=== PATIENT | female | born 1990 | race Caucasian/White ===

== ENCOUNTER 2023-08-06 22:10 | Emergency (ER) | payer BC ==
[~2023-08-06] VITALS: Ht 165.1 cm; Wt 98.9 kg
[2023-08-06] MEDS ORDERED: MORPHINE SULFATE INJ 4 MG/ML DISP.SYRIN ONE (23:18)
[2023-08-06] MEDS ORDERED: ONDANSETRON HCL/PF 4 MG/2 ML VIAL ONE (23:18)
[2023-08-06] MEDS: MORPHINE SULFATE INJ 2 MG/ML DISP.SYRIN IV ONE (23:30)
[2023-08-06] MEDS: ONDANSETRON HCL/PF 4 MG/2 ML VIAL IVP ONE (23:30)
[2023-08-06] MEDS: IV NS 0.9% 1,000 ML BAG IV ONE (23:30)
[2023-08-06 23:51] LABS: BASOPHILS # (AUTO) 0.1 K/uL (0.0-0.2); BASOPHILS % (AUTO) 0.6 % (0.0-2.0); EOSINOPHILS % (AUTO) 0.5 % (0.0-6.0); HEMATOCRIT 37 % (33-45); HEMOGLOBIN 12.4 g/dL (11.5-14.8); LYMPHOCYTES # (AUTO) 3.7 K/uL (0.8-4.8); LYMPHOCYTES % (AUTO) 39.5 % (20.0-44.0); MEAN CORPUSCULAR HEMOGLOBIN 31 PG (26.0-33.0); MEAN CORPUSCULAR HGB CONC 34 g/dl (31.0-36.0); MEAN CORPUSCULAR VOLUME 91 fL (82-100); MONOCYTES # (AUTO) 0.5 K/uL (0.1-1.30); MONOCYTES % (AUTO) 5.7 % (2.0-12.0); NEUTROPHILS % (AUTO) 53.7 % (43.0-81.0); PLATELET COUNT (AUTO) 234 K/uL (150-450); RED BLOOD CELL COUNT(AUTO) 4.05 MIL/uL (4.0-5.2); RED CELL DISTRIBUTION WIDTH 12.7 % (11.5-15.0); WHITE BLOOD COUNT (AUTO) 9.4 K/uL (4.3-11.0)
[2023-08-06 23:57] LABS: APPEARANCE,URINE SLIGHTLY CLOUDY (CLEAR); BILIRUBIN,URINE 1+ (NEGATIVE); BLOOD, URINE 3+ Ery/uL (NEGATIVE); COLOR,URINE DARK YELLOW (YELLOW); KETONES,URINE 2+ mg/dL (NEGATIVE); LEUKOCYTE ESTERASE ,URINE NEGATIVE (NEGATIVE); NITRITE, URINE NEGATIVE (NEGATIVE); PH,URINE 5.5 (5.0-8.0); PROTEIN,URINE TRACE mg/dl (NEGATIVE); UGLUCOSE NEGATIVE (NEGATIVE)
[2023-08-06 23:59] LABS: ADD URINE CULTURE NO; BACTERIA,URINE Rare /HPF (None Seen); PREGNANCY TEST URINE QUAL NEGATIVE (NEGATIVE); RBC,URINE 21-50 /HPF (0-2); SQUAMOUS EPITHELIAL CELL,UR Rare /HPF (None Seen); WBC,URINE 0-2 /HPF (0-3)
[2023-08-07 00:03] LABS: CALCIUM, SERUM 9.2 mg/dL (8.5-10.1); CREATININE 0.7 mg/dL (0.6-1.3); POTASSIUM 3.7 mmol/L (3.5-5.1)
[2023-08-07 00:09] LABS: ALBUMIN 3.6 g/dL (3.4-5.0); BILIRUBIN,DIRECT 0.1 mg/dL (0.0-0.2); BILIRUBIN,TOTAL 0.4 mg/dL (0.2-1.0); TOTAL PROTEIN, SERUM 7.2 g/dL (6.4-8.2)
[2023-08-07] MEDS ORDERED: KETOROLAC TROMETHAMINE 15 MG/ML VIAL ONE (02:09)
[2023-08-07] MEDS ORDERED: ONDANSETRON HCL/PF 4 MG/2 ML VIAL ONE (02:09)
[2023-08-07] MEDS ORDERED: TAMSULOSIN 0.4 MG CAP.SR.24H ONE (02:10)
[2023-08-07] MEDS ORDERED: KETO10TA2 PO (02:16)
[2023-08-07] MEDS: KETOROLAC TROMETHAMINE 15 MG/ML VIAL IV ONE (02:16)
[2023-08-07] MEDS ORDERED: TAMS-12 PO (02:16)
[2023-08-07] MEDS ORDERED: ONDA4TAB11 PO (02:16)
[2023-08-07] MEDS: ONDANSETRON HCL/PF - ER 4 MG/2 ML VIAL IV ONE (02:17)
[2023-08-07] MEDS: TAMSULOSIN 0.4 MG CAP.SR.24H PO ONE (02:17)
[2023-08-07 02:29] VITALS: BP 121/80; TEMP 98.6; O2SAT 100
[2023-08-08] MEDS ORDERED: HYDR-4303 PO (17:46)
[2023-08-08] MEDS ORDERED: NITR100C6 PO (17:46)
== END 2023-08-07 02:29 | disposition home or self-care (01) ==
LOC: ER 22:13
DX: N20.1 Calculus of ureter (principal); R10.31 Right lower quadrant pain
CPT/HCPCS: 99285; 96374; 96361; 96375 ×2; 85025; 80048; 83690; 80076; 84703; 81001; 36415; 74176; 96376; J2270; J2405 ×2; J7030; J1885

== ENCOUNTER → 2023-08-08 | Emergency (ER) | payer BC ==
[~2023-08-08] VITALS: Ht 165.1 cm; Wt 98.9 kg
[~2023-08-08] MED LIST: CEFTRIAXONE 1GM BAG (ER ONLY) 50 ML IV ONE; HYDR-4303 PO; HYDROMORPHONE 1 MG/1 ML DISP.SYRIN ONE; KETO10TA2 PO; KETOROLAC TROMETHAMINE 15 MG/ML VIAL ONE; NITR100C6 PO; ONDA4TAB11 PO; ONDANSETRON HCL/PF 4 MG/2 ML VIAL ONE; TAMS-12 PO
[2023-08-08 14:43] VITALS: BP 108/67; TEMP 98; O2SAT 100
[2023-08-08 15:18] LABS: BASOPHILS # (AUTO) 0.2 K/uL (0.0-0.2); BASOPHILS % (AUTO) 3.5 % (0.0-2.0); EOSINOPHILS # (AUTO) 0.1 K/uL (0.0-0.7); EOSINOPHILS % (AUTO) 0.9 % (0.0-6.0); HEMATOCRIT 36 % (33-45); HEMOGLOBIN 12.2 g/dL (11.5-14.8); LYMPHOCYTES # (AUTO) 1.9 K/uL (0.8-4.8); LYMPHOCYTES % (AUTO) 26.7 % (20.0-44.0); MEAN CORPUSCULAR HEMOGLOBIN 31 PG (26.0-33.0); MEAN CORPUSCULAR HGB CONC 34 g/dl (31.0-36.0); MEAN CORPUSCULAR VOLUME 91 fL (82-100); MONOCYTES # (AUTO) 0.3 K/uL (0.1-1.30); NEUTROPHILS # (AUTO) 4.5 K/uL (1.8-8.9); NEUTROPHILS % (AUTO) 64.9 % (43.0-81.0); PLATELET COUNT (AUTO) 231 K/uL (150-450); RED CELL DISTRIBUTION WIDTH 12.1 % (11.5-15.0); WHITE BLOOD COUNT (AUTO) 6.9 K/uL (4.3-11.0)
[2023-08-08 15:24] LABS: ALBUMIN 3.7 g/dL (3.4-5.0); BILIRUBIN,DIRECT 0.2 mg/dL (0.0-0.2); BILIRUBIN,TOTAL 0.6 mg/dL (0.2-1.0); CALCIUM, SERUM 8.5 mg/dL (8.5-10.1); CREATININE 0.7 mg/dL (0.6-1.3); POTASSIUM 3.8 mmol/L (3.5-5.1); TOTAL PROTEIN, SERUM 7.1 g/dL (6.4-8.2)
[2023-08-08 15:31] LABS: APPEARANCE,URINE Cloudy (CLEAR); BILIRUBIN,URINE MODERATE (NEGATIVE); BLOOD, URINE Trace-intact Ery/uL (NEGATIVE); COLOR,URINE DARK YELLOW (YELLOW); KETONES,URINE >=160 mg/dL (NEGATIVE); LEUKOCYTE ESTERASE ,URINE Negative (NEGATIVE); NITRITE, URINE Negative (NEGATIVE); PH,URINE 5.5 (5.0-8.0); PROTEIN,URINE 30 mg/dl (NEGATIVE); UGLUCOSE Negative (NEGATIVE)
[2023-08-08 15:36] LABS: PREGNANCY TEST URINE QUAL NEGATIVE (NEGATIVE)
[2023-08-08] MEDS: KETOROLAC TROMETHAMINE 15 MG/ML VIAL IV ONE (15:47)
[2023-08-08] MEDS: IV NS 0.9% 1,000 ML BAG IV ONE (15:47)
[2023-08-08] MEDS: ONDANSETRON HCL/PF 4 MG/2 ML VIAL IVP ONE (15:47)
[2023-08-08] MEDS: HYDROMORPHONE INJ 2 MG/ML DISP.SYRIN IV ONE (15:47)
[2023-08-08 15:58] LABS: ADD URINE CULTURE YES; BACTERIA,URINE Moderate /HPF (None Seen); SQUAMOUS EPITHELIAL CELL,UR Moderate /HPF (None Seen)
[2023-08-08] MEDS: CEFTRIAXONE 1GM BAG (ER ONLY) 50 ML IV ONE (17:45)
== END | disposition home or self-care (01) ==
LOC: ER 14:36
DX: N20.0 Calculus of kidney (principal); N39.0 Urinary tract infection, site not specified; R10.31 Right lower quadrant pain
CPT/HCPCS: 99285; 96365; 96375; 76770; 85025; 80048; 87086; 83690; 80076; 84703; 81001; 36415; J2405; J7030; A4223; J0696; J1170; J1885

== ENCOUNTER 2023-10-13 08:01 | Emergency (ER) | payer SELFPAY ==
[~2023-10-13] VITALS: Ht 165.1 cm; Wt 94.8 kg
[~2023-10-13 08:01] MED LIST changes: -CEFTRIAXONE 1GM BAG (ER ONLY) 50 ML IV ONE; -HYDROMORPHONE 1 MG/1 ML DISP.SYRIN ONE; -KETOROLAC TROMETHAMINE 15 MG/ML VIAL ONE; -ONDANSETRON HCL/PF 4 MG/2 ML VIAL ONE
[2023-10-13 08:57] LABS: BASOPHILS % (AUTO) 0.5 % (0.0-2.0); EOSINOPHILS # (AUTO) 0.1 K/uL (0.0-0.7); HEMATOCRIT 36 % (33-45); HEMOGLOBIN 12.2 g/dL (11.5-14.8); LYMPHOCYTES # (AUTO) 2.4 K/uL (0.8-4.8); LYMPHOCYTES % (AUTO) 41.2 % (20.0-44.0); MEAN CORPUSCULAR HEMOGLOBIN 31 PG (26.0-33.0); MEAN CORPUSCULAR HGB CONC 34 g/dl (31.0-36.0); MEAN CORPUSCULAR VOLUME 90 fL (82-100); MONOCYTES # (AUTO) 0.3 K/uL (0.1-1.30); MONOCYTES % (AUTO) 5.1 % (2.0-12.0); NEUTROPHILS % (AUTO) 52.2 % (43.0-81.0); PLATELET COUNT (AUTO) 239 K/uL (150-450); RED BLOOD CELL COUNT(AUTO) 3.92 MIL/uL (4.0-5.2); RED CELL DISTRIBUTION WIDTH 12.3 % (11.5-15.0); WHITE BLOOD COUNT (AUTO) 5.8 K/uL (4.3-11.0)
[2023-10-13 08:58] LABS: APPEARANCE,URINE CLEAR (CLEAR); BILIRUBIN,URINE NEGATIVE (NEGATIVE); BLOOD, URINE NEGATIVE Ery/uL (NEGATIVE); COLOR,URINE YELLOW (YELLOW); KETONES,URINE NEGATIVE (NEGATIVE); LEUKOCYTE ESTERASE ,URINE NEGATIVE (NEGATIVE); NITRITE, URINE NEGATIVE (NEGATIVE); PH,URINE 6.5 (5.0-8.0); PROTEIN,URINE NEGATIVE (NEGATIVE); UGLUCOSE NEGATIVE (NEGATIVE); UROBILINOGEN,URINE 0.2 EU/dL (0.2)
[2023-10-13 09:03] LABS: PREGNANCY TEST URINE QUAL NEGATIVE (NEGATIVE)
[2023-10-13 09:04] LABS: CALCIUM, SERUM 9.3 mg/dL (8.5-10.1); CREATININE 0.7 mg/dL (0.6-1.3); POTASSIUM 4.1 mmol/L (3.5-5.1)
[2023-10-13 09:10] LABS: ALBUMIN 3.4 g/dL (3.4-5.0); BILIRUBIN,DIRECT 0.1 mg/dL (0.0-0.2); BILIRUBIN,TOTAL 0.3 mg/dL (0.2-1.0); TOTAL PROTEIN, SERUM 6.9 g/dL (6.4-8.2)
[2023-10-13] MEDS ORDERED: IBUP-1955 PO (10:09)
[2023-10-13] MEDS ORDERED: TAMS-12 PO (10:09)
[2023-10-13] MEDS ORDERED: HYDR-4303 PO (10:09)
[2023-10-13] MEDS ORDERED: KETOROLAC TROMETHAMINE 15 MG/ML VIAL ONE (10:45)
[2023-10-13] MEDS: KETOROLAC TROMETHAMINE 15 MG/ML VIAL IM ONE (10:49)
[2023-10-13 11:05] VITALS: BP 123/84; TEMP 98.2; O2SAT 100
== END 2023-10-13 11:06 | disposition home or self-care (01) ==
LOC: ER 08:19
DX: N13.2 Hydronephrosis with renal and ureteral calculous obstruction (principal); R10.31 Right lower quadrant pain; R30.0 Dysuria; R39.15 Urgency of urination
CPT/HCPCS: 99285; 76705; 96372; 85025; 80048; 83690; 80076; 84703; 81003; 36415; J1885

== ENCOUNTER 2024-08-06 06:40 | Emergency (ER) | payer MEDICAID ==
[~2024-08-06] VITALS: Ht 165.1 cm; Wt 99.8 kg
[~2024-08-06 06:40] MED LIST changes: +IBUP-1955 PO
[2024-08-06 07:35] LABS: BASOPHILS % (AUTO) 0.5 % (0.0-2.0); EOSINOPHILS # (AUTO) 0.1 K/uL (0.0-0.7); EOSINOPHILS % (AUTO) 0.9 % (0.0-6.0); HEMATOCRIT 37 % (33-45); HEMOGLOBIN 12.3 g/dL (11.5-14.8); LYMPHOCYTES # (AUTO) 1.6 K/uL (0.8-4.8); LYMPHOCYTES % (AUTO) 22.3 % (20.0-44.0); MEAN CORPUSCULAR HEMOGLOBIN 28 PG (26.0-33.0); MEAN CORPUSCULAR HGB CONC 33 g/dl (31.0-36.0); MEAN CORPUSCULAR VOLUME 85 fL (82-100); MONOCYTES # (AUTO) 0.6 K/uL (0.1-1.30); MONOCYTES % (AUTO) 8.4 % (2.0-12.0); NEUTROPHILS # (AUTO) 4.9 K/uL (1.8-8.9); NEUTROPHILS % (AUTO) 67.9 % (43.0-81.0); PLATELET COUNT (AUTO) 235 K/uL (150-450); RED BLOOD CELL COUNT(AUTO) 4.33 MIL/uL (4.0-5.2); WHITE BLOOD COUNT (AUTO) 7.2 K/uL (4.3-11.0)
[2024-08-06 07:42] LABS: CALCIUM, SERUM 8.8 mg/dL (8.5-10.1); CARBON DIOXIDE 26 mmol/L (21-32); CHLORIDE 103 mmol/L (98-107); CREATININE 0.6 mg/dL (0.6-1.3); GLUCOSE 85 mg/dL (74-106); POTASSIUM 4.1 mmol/L (3.5-5.1); SODIUM SERUM 140 mmol/L (136-145); UREA NITROGEN, BLOOD 8 mg/dL (7-18)
[2024-08-06] MEDS ORDERED: KETOROLAC TROMETHAMINE 15 MG/ML VIAL ONE (07:42)
[2024-08-06] MEDS: KETOROLAC TROMETHAMINE 15 MG/ML VIAL IV ONE (07:45)
[2024-08-06] MEDS ORDERED: AMOX500T2 PO (08:05)
[2024-08-06] MEDS ORDERED: ALBU18HF2 INH (08:05)
[2024-08-06] MEDS ORDERED: DOXY100C2 PO (08:05)
[2024-08-06 08:19] VITALS: BP 129/83; TEMP 98.5; O2SAT 99
== END 2024-08-06 08:22 | disposition home or self-care (01) ==
LOC: ER 06:40
DX: J20.9 Acute bronchitis, unspecified (principal); R07.89 Other chest pain; R10.2 Pelvic and perineal pain; Z87.442 Personal history of urinary calculi; Z79.899 Other long term (current) drug therapy
CPT/HCPCS: 99285; 96374; 71045; 93005; 85025; 80048; 36415; 84484; 84702; J1885

== ENCOUNTER 2024-12-26 14:29 | Emergency (ER) | payer BC ==
[~2024-12-26] VITALS: Ht 165.1 cm; Wt 99.8 kg
[~2024-12-26 14:29] MED LIST changes: +ALBU18HF2 INH; +AMOX500T2 PO; +DOXY100C2 PO
[2024-12-26 14:51] VITALS: TEMP 98.2
[2024-12-26 15:22] LABS: APPEARANCE,URINE CLEAR (CLEAR); BLOOD, URINE NEGATIVE Ery/uL (NEGATIVE); LEUKOCYTE ESTERASE ,URINE NEGATIVE (NEGATIVE); NITRITE, URINE NEGATIVE (NEGATIVE); UGLUCOSE NEGATIVE (NEGATIVE)
[2024-12-26] MEDS ORDERED: ACETAMINOPHEN ES 500 MG TABLET ONE (15:29)
[2024-12-26] MEDS ORDERED: IBUPROFEN 600 MG TABLET ONE (15:29)
[2024-12-26 15:33] LABS: PLATELET COUNT (AUTO) 241 K/uL (150-450); RED BLOOD CELL COUNT(AUTO) 4.08 MIL/uL (4.0-5.2); RED CELL DISTRIBUTION WIDTH 13.5 % (11.5-15.0); WHITE BLOOD COUNT (AUTO) 10.1 K/uL (4.3-11.0)
[2024-12-26 15:47] LABS: ADD URINE CULTURE NO
[2024-12-26 15:50] LABS: INR 0.9 (0.91-1.10)
[2024-12-26] MEDS: ACETAMINOPHEN ES 500 MG TABLET PO ONE (15:50)
[2024-12-26] MEDS: IBUPROFEN 600 MG TABLET PO ONE (15:50)
[2024-12-26 16:00] LABS: CALCIUM, SERUM 8.6 mg/dL (8.5-10.1); CREATININE 0.8 mg/dL (0.6-1.3); SODIUM SERUM 141.0 mmol/L (136-145); UREA NITROGEN, BLOOD 14.0 mg/dL (7-18)
[2024-12-26 16:07] LABS: ASPARTATE AMINOTRANSFERASE 7.0 U/L (15-37); PREGNANCY TEST SERUM QUAN 1.0 mIU/mL (0-6); TOTAL PROTEIN, SERUM 6.9 g/dL (6.4-8.2)
[2024-12-26] MEDS ORDERED: IBUP-1490 PO (17:09)
[2024-12-26 17:49] VITALS: BP 110/60; O2SAT 99
== END 2024-12-26 17:45 | disposition home or self-care (01) ==
LOC: ER 14:50
DX: N83.201 Unspecified ovarian cyst, right side (principal); N93.9 Abnormal uterine and vaginal bleeding, unspecified; Z87.442 Personal history of urinary calculi; Z79.899 Other long term (current) drug therapy
CPT/HCPCS: 36415; 76856-TC; 80048-TC; 80076-TC; 81001; 84702-TC; 85025-TC; 85730-TC; 87086-TC